=== PATIENT | female | born 1980 | race African-American/Black ===

== ENCOUNTER 2018-05-01 13:51 | Emergency (ER) | payer OTHER ==
[~2018-05-01] VITALS: Ht 162.6 cm; Wt 107.0 kg
[~2018-05-01 13:51] MED LIST: ALBU2SYR3 PO
[2018-05-01] MEDS ORDERED: ONDANSETRON HCL 4MG/2ML VIAL IV STA (15:54)
[2018-05-01] MEDS ORDERED: MORPHINE SULFATE 4 MG/ML CPJ (NOT FOR IM USE) IV STA (15:54)
[2018-05-01] MEDS ORDERED: SODIUM CHLORIDE 0.9% 1,000 ML IV ONE (15:54)
[2018-05-01 16:26] LABS: CLARITY URINE CLEAR (CLEAR); COLOR URINE YELLOW (YELLOW); KETONES URINE NEGATIVE (NEGATIVE); LEUKOCYTE ESTERASE URINE NEGATIVE (NEGATIVE); NITRITE URINE NEGATIVE (NEGATIVE); OCCULT BLOOD URINE NEGATIVE (NEGATIVE); PH URINE 6.5 (4.5-8.0); PROTEIN URINE NEGATIVE (NEGATIVE); UROBILINOGEN URINE 0.2 E.U./dL (0.2-1.0)
[2018-05-01 17:10] LABS: CHLORIDE 107 mEq/L (98-107)
[2018-05-01 17:12] LABS: BASOPHILS % 0.7 % (0.0-2.0); EOSINOPHILS % 1.2 % (0.0-5.0); HEMOGLOBIN. 11.1 g/dL (12.0-16.0); LYMPHOCYTES % 58.8 % (20.0-50.0); MEAN CORPUSCULAR HEMOGLOBIN 26.4 pg (28.0-32.0); MEAN CORPUSCULAR VOLUME 80.8 fL (81.0-99.0); MEAN PLATELET VOLUME 8.7 fl (7.4-10.4); MONOCYTES % 7.3 % (2.0-8.0); PLATELET 240 x1000/uL (130-400); RED BLOOD CELL COUNT 4.21 mill/uL (4.2-5.4); RED CELL DISTRIBUTION WIDTH 13.9 % (11.6-14.6)
[2018-05-01] MEDS ORDERED: IOHEXOL-300 100 ML BOTTLE ONE (21:13)
[2018-05-01 22:15] VITALS: BP 121/74
== END 2018-05-01 22:35 | disposition home or self-care (01) ==
LOC: ER 13:51
DX: R10.31 Right lower quadrant pain (principal); N83.291 Other ovarian cyst, right side; J45.909 Unspecified asthma, uncomplicated; R10.2 Pelvic and perineal pain; Z88.6 Allergy status to analgesic agent
CPT/HCPCS: 36415; 74177; 76830; 76856; 80053; 81003; 81025; 83690; 85025; 96374; 96375; 99285; J2270; J2405; J7030; Q9967; Z7610

== ENCOUNTER 2020-05-01 07:53 | Emergency (ER) | payer OTHER ==
[~2020-05-01] VITALS: Ht 162.6 cm; Wt 100.0 kg
[2020-05-01 09:54] LABS: EOSINOPHILS % 3.7 % (0.0-5.0); HEMATOCRIT. 34.2 % (36.0-48.0); HEMOGLOBIN. 11.5 g/dL (12.0-16.0); LYMPHOCYTES % 52.5 % (20.0-50.0); MEAN CORPUSCULAR HEMOGLOBIN 26.6 pg (28.0-32.0); MEAN CORPUSCULAR VOLUME 79.2 fL (81.0-99.0); MEAN PLATELET VOLUME 7.8 fl (7.4-10.4); MONOCYTES % 9.3 % (2.0-8.0); NEUTROPHILS % 33.5 % (40.0-76.0); PLATELET 268 x1000/uL (130-400); RED BLOOD CELL COUNT 4.31 mill/uL (4.2-5.4); RED CELL DISTRIBUTION WIDTH 16.3 % (11.6-14.6)
[2020-05-01 09:55] LABS: CLARITY URINE TURBID (CLEAR); COLOR URINE RED (YELLOW); KETONES URINE NEGATIVE (NEGATIVE); LEUKOCYTE ESTERASE URINE 2+ (NEGATIVE); NITRITE URINE NEGATIVE (NEGATIVE); OCCULT BLOOD URINE 3+ (NEGATIVE); PH URINE 5.5 (4.5-8.0); PROTEIN URINE 2+ (NEGATIVE); SPECIFIC GRAVITY URINE 1.027 (1.005-1.030); UROBILINOGEN URINE 0.2 E.U./dL (0.2-1.0)
[2020-05-01] MEDS ORDERED: ACETAMINOPHEN 325MG TABLET PO ONE (10:00)
[2020-05-01 10:01] LABS: CHLORIDE 110 mEq/L (98-107)
[2020-05-01 10:11] LABS: B-HCG QUANTITATIVE 117 mIU/mL (<3)
[2020-05-01 12:15] VITALS: BP 121/80
== END 2020-05-01 12:19 | disposition home or self-care (01) ==
LOC: ER 07:53
DX: O02.1 Missed abortion (principal); O08.83 Urinary tract infection following an ectopic and molar pregnancy
CPT/HCPCS: 36415; 76801; 80053; 81003; 81025; 84702; 85025; 86850; 86900; 99284

== ENCOUNTER 2021-01-16 13:17 | Emergency (ER) | payer OTHER ==
[~2021-01-16] VITALS: Ht 162.6 cm; Wt 100.0 kg
[2021-01-16 17:03] LABS: BASOPHILS % 0.4 % (0.0-2.0); EOSINOPHILS % 1.4 % (0.0-5.0); HEMATOCRIT. 33.1 % (36.0-48.0); HEMOGLOBIN. 10.9 g/dL (12.0-16.0); LYMPHOCYTES % 11.7 % (20.0-50.0); MEAN CORPUSCULAR HEMOGLOBIN 27.2 pg (28.0-32.0); MEAN CORPUSCULAR VOLUME 82.3 fL (81.0-99.0); MONOCYTES % 5.6 % (2.0-8.0); NEUTROPHILS % 80.9 % (40.0-76.0); PLATELET 220 x1000/uL (130-400); RED BLOOD CELL COUNT 4.03 mill/uL (4.2-5.4); RED CELL DISTRIBUTION WIDTH 14.2 % (11.6-14.6)
[2021-01-16 17:09] LABS: CHLORIDE 107 mEq/L (98-107)
[2021-01-16] MEDS ORDERED: PHENOL/SODIUM PHENOLATE 1.4% SRPAY 177ML MM ONE (18:15)
[2021-01-16] MEDS ORDERED: AMOX-494 MT (18:24)
[2021-01-16] MEDS ORDERED: AMOXICILLIN 500 MG CAPSULE PO ONE (18:30)
[2021-01-16] MEDS ORDERED: ACETAMINOPHEN 325MG TABLET PO ONE (18:30)
[2021-01-16 18:58] VITALS: BP 112/60
== END 2021-01-16 19:27 | disposition home or self-care (01) ==
LOC: ER 13:17
DX: O98.511 Other viral diseases complicating pregnancy, first trimester (principal); O99.511 Diseases of the respiratory system complicating pregnancy, first trimester; J98.8 Other specified respiratory disorders; Z20.822 Contact with and (suspected) exposure to COVID-19; O46.92 Antepartum hemorrhage, unspecified, second trimester; Z3A.16 16 weeks gestation of pregnancy
CPT/HCPCS: 36415; 76805; 76817; 80053; 81025; 84702; 85025; 86850; 86900; 86901; 87070; 87430; 93005; 99285; C9803; U0003; Z7610

== ENCOUNTER 2022-04-01 21:24 | Emergency (ER) | payer MEDICAID, OTHER ==
[~2022-04-01] VITALS: Ht 162.6 cm; Wt 105.5 kg
[~2022-04-01 21:24] MED LIST changes: +AMOX-494 MT
[2022-04-01] MEDS ORDERED: HYDROCODONE/ACETAMINOPHEN 5/325MG TABLET PO ONE (23:15)
[2022-04-02 00:17] LABS: BASOPHILS % 0.6 % (0.0-2.0); EOSINOPHILS % 1.3 % (0.0-5.0); HEMATOCRIT. 35.4 % (36.0-48.0); HEMOGLOBIN. 11.6 g/dL (12.0-16.0); LYMPHOCYTES % 35.7 % (20.0-50.0); MEAN CORPUSCULAR HEMOGLOBIN 26.9 pg (28.0-32.0); MEAN CORPUSCULAR VOLUME 82.4 fL (81.0-99.0); MEAN PLATELET VOLUME 8.2 fl (7.4-10.4); MONOCYTES % 6.8 % (2.0-8.0); NEUTROPHILS % 55.6 % (40.0-76.0); PLATELET 265 x1000/uL (130-400); RED CELL DISTRIBUTION WIDTH 13.6 % (11.6-14.6)
[2022-04-02 00:36] LABS: CHLORIDE 105 mEq/L (98-107)
[2022-04-02 00:44] LABS: CLARITY URINE TURBID (CLEAR); COLOR URINE DARK YELLOW (YELLOW); KETONES URINE TRACE (NEGATIVE); LEUKOCYTE ESTERASE URINE 3+ (NEGATIVE); NITRITE URINE POSITIVE (NEGATIVE); OCCULT BLOOD URINE 3+ (NEGATIVE); PROTEIN URINE 2+ (NEGATIVE); SPECIFIC GRAVITY URINE 1.025 (1.005-1.030)
[2022-04-02] MEDS ORDERED: HYDROCODONE/ACETAMINOPHEN 5/325MG TABLET PO NR (01:00)
[2022-04-02 01:27] LABS: HCG SCREEN NEGATIVE
[2022-04-02] MEDS ORDERED: CEPH500C2 MT (01:31)
[2022-04-02] MEDS ORDERED: IBUP-2029 MT (01:31)
[2022-04-02 01:39] VITALS: BP 126/65
== END 2022-04-02 01:41 | disposition home or self-care (01) ==
LOC: ER 21:24
DX: N39.0 Urinary tract infection, site not specified (principal); J45.909 Unspecified asthma, uncomplicated; Z98.890 Other specified postprocedural states; Z98.51 Tubal ligation status
CPT/HCPCS: 36415; 76830; 76856; 80053; 81003; 84703; 85025; 87077; 87186; 99284

== ENCOUNTER 2023-05-22 16:53 | Emergency (ER) | payer MEDICAID, OTHER ==
[~2023-05-22] VITALS: Ht 162.6 cm; Wt 106.0 kg
[~2023-05-22 16:53] MED LIST changes: +CEPH500C2 MT; +IBUP-2029 MT
[2023-05-22 16:55] VITALS: BP 105/59; TEMP 98.2
[2023-05-22] MEDS ORDERED: IPRATROPIUM BROMIDE (0.02%) 0.5MG/2.5ML NEB HHN STA (17:00)
[2023-05-22] MEDS ORDERED: METHYLPREDNISOLONE SOD SUCC 125MG/2ML (ACT-O-VIAL) IV STA (17:00)
[2023-05-22] MEDS ORDERED: ALBUTEROL (0.083%) 2.5MG/3ML NEB HHN STA (17:00)
[2023-05-22 17:34] LABS: BASOPHILS % 0.5 % (0.0-2.0); DIFFERENTIAL COMMENT 0; EOSINOPHILS % 0.2 % (0.0-5.0); HEMATOCRIT. 33.1 % (36.0-48.0); HEMOGLOBIN. 10.9 g/dL (12.0-16.0); LYMPHOCYTES % 25.2 % (20.0-50.0); MEAN CORPUSCULAR HEMOGLOBIN 25.8 pg (28.0-32.0); MEAN CORPUSCULAR HGB CONC 32.8 g/dL (31.0-37.0); MEAN CORPUSCULAR VOLUME 78.5 fL (81.0-99.0); MEAN PLATELET VOLUME 7.9 fl (7.4-10.4); MONOCYTES % 7.5 % (2.0-8.0); NEUTROPHILS % 66.6 % (40.0-76.0); PLATELET 262 x1000/uL (130-400); RED BLOOD CELL COUNT 4.21 mill/uL (4.2-5.4); RED CELL DISTRIBUTION WIDTH 15.2 % (11.6-14.6); WHITE BLOOD COUNT 5.6 x1000/uL (4.5-11.0)
[2023-05-22 17:40] LABS: CHLORIDE 109 mEq/L (98-107); INDEX HEMOLYSI 1 (1-3); INDEX ICTERIC 1 (1-4); INDEX LIPEMIC 1 (1-3); POTASSIUM 2.9 mEq/L (3.5-5.1); SODIUM 136 mEq/L (136-145)
[2023-05-22 17:51] LABS: ALANINE AMINOTRANSFERASE 23 IU/L (13-61); ALBUMIN 3.1 g/dL (3.4-5.0); ASPARTATE AMINOTRANSFERASE 18 IU/L (15-37); BILIRUBIN TOTAL 0.4 mg/dL (0.1-1.0); CALCIUM 8.3 mg/dL (8.5-10.1); CARBON DIOXIDE 21 mEq/L (21-32); CREATININE 0.9 mg/dL (0.6-1.3); GLUCOSE 97 mg/dL (70-105); NT PRO B-TYPE NATRIURETIC PEP 627 pg/mL (5-125); PROTEIN TOTAL 7.6 g/dL (6.0-8.3); UREA NITROGEN BLOOD 6 mg/dL (7-21)
[2023-05-22 18:13] LABS: TROPONIN I HIGH SENSITIVITY < 4 ng/L (<54)
[2023-05-22] MEDS ORDERED: P50 MT (20:02)
[2023-05-22] MEDS ORDERED: ALBU2.5V13 NEB (20:02)
[2023-05-22] MEDS ORDERED: PREDNISONE 20MG TABLET PO ONE (20:45)
[2023-05-22 20:52] VITALS: PULSE 101; RESP 22; O2SAT 99
[2023-05-22] MEDS ORDERED: IPRATROPIUM BROMIDE (0.02%) 0.5MG/2.5ML NEB HHN NR (21:00)
[2023-05-22] MEDS ORDERED: ALBUTEROL (0.083%) 2.5MG/3ML NEB HHN NR (21:00)
== END 2023-05-22 23:09 | disposition home or self-care (01) ==
LOC: ER 18:30
DX: J45.901 Unspecified asthma with (acute) exacerbation (principal); Z68.41 Body mass index [BMI] 40.0-44.9, adult; Z98.890 Other specified postprocedural states; Z98.51 Tubal ligation status; Z79.899 Other long term (current) drug therapy
CPT/HCPCS: 80053; 83880; 85025; 84484; 36415; 71045; 94640; 99284; J7512; Z7610 ×3; J2930

== ENCOUNTER 2023-11-12 08:39 | Emergency (ER) | payer MEDICAID, OTHER ==
[~2023-11-12] VITALS: Ht 170.2 cm; Wt 90.0 kg
[~2023-11-12 08:39] MED LIST changes: +ALBU2.5V13 NEB; +P50 MT
[2023-11-12 08:44] VITALS: BP 118/80; PULSE 81; RESP 20; TEMP 97.8; O2SAT 97
[2023-11-12] MEDS ORDERED: DEXAMETHASONE 4MG TABLET PO ONE (09:30)
[2023-11-12] MEDS ORDERED: FAMOTIDINE 20MG TABLET PO ONE (09:30)
[2023-11-12] MEDS ORDERED: DIPHENHYDRAMINE 25MG CAPSULE PO ONE (09:30)
[2023-11-12] MEDS ORDERED: DEXAMETHASONE 10 MG/ML VIAL PO SCH (09:45)
[2023-11-12] MEDS ORDERED: DIPH25CA83 MT (09:59)
[2023-11-12] MEDS ORDERED: EPIN0.3P3 IM (09:59)
== END 2023-11-12 10:36 | disposition home or self-care (01) ==
LOC: ER 08:39
DX: T78.40XA Allergy, unspecified, initial encounter (principal); J45.909 Unspecified asthma, uncomplicated; Z88.6 Allergy status to analgesic agent; Z79.899 Other long term (current) drug therapy; Z98.890 Other specified postprocedural states; Z98.51 Tubal ligation status; X58.XXXA Exposure to other specified factors, initial encounter
CPT/HCPCS: 99284; Q0163; J1100; J8540

== ENCOUNTER 2025-02-27 06:57 | Emergency (ER) | payer MEDICAID, OTHER ==
[~2025-02-27 06:57] MED LIST changes: +ALBU2SYR24 PO; -ALBU2SYR3 PO; +DIPH25CA83 MT; +EPIN0.3P3 IM
[2025-02-27 06:59] VITALS: O2SAT 95
[2025-02-27] MEDS ORDERED: PREDNISONE 20MG TABLET PO ONE (07:30)
[2025-02-27 08:03] VITALS: PULSE 76; RESP 18
[2025-02-27] MEDS: IPRATROPIUM/ALBUTEROL 0.5-3(2.5)MG/3ML NEB HHN ONE (08:03)
[2025-02-27] MEDS ORDERED: ALBU2.5V13 NEB (08:25)
[2025-02-27] MEDS ORDERED: P50 MT (08:26)
== END 2025-02-27 09:20 | disposition home or self-care (01) ==
LOC: ER 06:57
DX: J45.901 Unspecified asthma with (acute) exacerbation (principal); Z98.51 Tubal ligation status; Z79.899 Other long term (current) drug therapy
CPT/HCPCS: 94640; 99283; Z7610 ×3; 94070